=== PATIENT | female | born 1980 | race Caucasian/White ===

== ENCOUNTER 2019-02-18 12:38 | Emergency (ER) | payer BC, SELFPAY ==
[2019-02-18 12:39] VITALS: BP 158/95; PULSE 92; RESP 16; TEMP 36.5; O2SAT 99; BMI 26.5
--- NOTE | 2019-02-18 12:59 | ED.DCSUM_ITS ---
History of Present Illness Chief Complaint: Abscess Detail of Chief Complaint: Dental abscess Informant: Patient Onset: Today Current Severity: Moderate Maximum Severity: Moderate Narrative: Patient presents with swelling to the left jaw. She states she had URI symptoms yesterday. Her children have had similar recent URI illness. She woke this morning with swelling along her left jaw. She states she has had a bad tooth there for some time but has really not bothered her lately. Does have a history of MS and is on immunosuppression. She went to urgent care this morning. They placed her on amoxicillin but advised her to come to the ER she worsened at all. After returning back to work she stated the swelling seem to be worse and was starting to go down the side of her neck slightly. She presented for second evaluation. She denies any difficulty swallowing. She does not feel any swelling under her tongue. - Past Medical History (1) Multiple sclerosis Status: Chronic (2) Depression Status: Chronic (3) GERD (gastroesophageal reflux disease) Status: Chronic Past Medical History - Allergies and Home Meds Allergies/Adverse Reactions: Allergies diphenhydramine HCl [From Benadryl] Allergy (Verified 02/18/19 12:39) [facility] Primary Care Physician: Estrella Avitia MD [Primary Care Provider] - Prior records reviewed: Yes Lives: With Family Smoking Status: Current every day smoker Review of Systems General: Denies: Chills, Fever Eyes: Denies: Visual changes - bilaterally ENT: Reports: - - Left jaw pain Cardiovascular: Denies: Chest pain Respiratory: Denies: Dyspnea, Cough Gastrointestinal: Denies: Abdominal pain, Nausea, Vomiting Musculoskeletal: Denies: Extremity Pain Skin: Reports: Abscess Neurological: Denies: Headache Physical Exam Vital Signs/Narrative: Vital Signs Temp Pulse Resp BP Pulse Ox 02/18/19 12:39 97.7 F L 92 16 158/95 H 99 Inital Vital Signs reviewed: Yes General: Well nourished, Well developed Head: Normocephalic ENT: Moist mucous membranes, - - Left mandibular first molar is broken with mild gum edema. She has an abscess along the left jaw. Minimal skin erythema. There is no evidence of Xiang's angina. She is tolerating secretions well and has a strong voice. Cardiovascular: Regular rate, Regular rhythm, No murmurs Respiratory: No distress, CTA bilaterally Abdomen: Soft, Nontender Skin: Normal color Neurological: Alert, Oriented x3 Psychological: Normal affect Diagnostic/Tx/Re-eval - Medical Decision Making For clindamycin for better dental coverage. She is to call her dentist today to schedule follow-up appointment in 3 or 4 days. I did specifically discuss Xiang's angina with the patient and gave her warning signs to watch for. She will return if she develops any concerns. ED Disposition - Plan for ED Patient: Disposition: Home or Assisted Living Diagnosis: Dental abscess Instructions: Dental Abscess Prescriptions: Clindamycin [Cleocin] 300 mg PO 4X/DAY #80 capsule Hydrocodone Bitart/Apap 5-325 [[place] 5MG-325MG] 1 tablet PO Q6H PRN PRN 3 Days #10 tablet PRN Reason: Pain Additional Instructions: Follow-up with your dentist in 3-5 days as discussed. Return for worsening symptoms or any concerns.
[2019-02-18] MEDS: Clindamycin HCl 150 MG Capsule 300 MG PO (13:30)
== END 2019-02-18 13:41 | disposition home or self-care (01) ==
LOC: ED 13:14
PROVIDERS: Emergency Provider Emergency Medicine; Family Provider Internal Medicine; PCP Internal Medicine
DX: K04.7 Periapical abscess without sinus (principal); G35 Multiple sclerosis; F32.9 Major depressive disorder, single episode, unspecified; K21.9 Gastro-esophageal reflux disease without esophagitis; F17.200 Nicotine dependence, unspecified, uncomplicated; Z79.899 Other long term (current) drug therapy
CPT/HCPCS: 99283